=== PATIENT | male | born 1985 | race Caucasian/White ===

== ENCOUNTER 2018-07-29 00:50 | Emergency (ER) | payer OTHER ==
[~2018-07-29] VITALS: Ht 208.3 cm; Wt 104.3 kg
[2018-07-29 00:53] VITALS: Ht 208.3 cm; Wt 104.3 kg
[2018-07-29 01:47] VITALS: BP 132/79
== END 2018-07-29 01:47 | disposition home or self-care (01) ==
LOC: ED 00:50
DX: S61.011A Laceration without foreign body of right thumb without damage to nail, initial encounter (principal); W26.8XXA Contact with other sharp object(s), not elsewhere classified, initial encounter; Y93.89 Activity, other specified; Y92.89 Other specified places as the place of occurrence of the external cause; Y99.8 Other external cause status
CPT/HCPCS: 90715; J2001